=== PATIENT | male | born 1975 | race Caucasian/White ===

== ENCOUNTER 2018-10-30 17:41 | Inpatient (IN) ==
[2018-10-30] MEDS ORDERED: methylPREDNISolone SOD SUC 125 MG/2 ML VIAL IV STA (18:09)
[2018-10-30] MEDS ORDERED: ALBUTEROL/IPRATROPIUM 3 ML NEB RESP TX STA (18:13)
[2018-10-30 19:09] LABS: Albumin 3.4 G/DL (3.4-5.0); Bilirubin,Total 2.8 MG/DL (0.2-1.0); CKMB % 3.4 %; Calcium 8.7 MG/DL (8.5-10.1); Osmolality,Calculated 278.5 MOS/KG (273-304); Total Protein 6.4 G/DL (6.4-8.3); Troponin I 0.036 NG/ML (0.00-0.045)
[2018-10-30] MEDS ORDERED: DEXTROSE 50% 25 GM/50 ML VIAL IV STA (19:16)
[2018-10-30] MEDS ORDERED: INSULIN REGULAR 100 UNIT/ML IV STA (19:16)
[2018-10-30] MEDS ORDERED: ALBUTEROL NEB SOLN 5 MG/ML 20 ML/BOTTLE CONT NEB STA (19:16)
[2018-10-30] MEDS ORDERED: CALCIUM CHLORIDE 1,000 MG/10 ML SYRINGE IV STA (19:16)
[2018-10-30 19:54] LABS: Basophils % 0.3 % (0.0-0.8); Eosinophils % 0.5 % (0.00-10.9); Hematocrit 50.5 VOL% (42.0-52.0); Hemoglobin 16.3 GM/DL (14.0-18.0); Immature Granulocytes Absolute 0.07 #; Lymphocytes # 1.6 10*3/uL (1.4-4.0); Lymphocytes % 21.4 % (21.2-54.2); Mean Corpuscular HGB Conc 32.3 GM/DL (32-36); Mean Corpuscular Volume 102.2 FL (87-102); Mean Platelet Volume 11.8 FL (9.6-12.0); Monocytes % 8.8 % (1.7-12.7); NRBC # 0.22 10*3/uL; Red Blood Count 4.94 MC/CUMM (3.8-5.5); Red Cell Distribution Width 15.7 % (9.3-17.3); White Blood Count 7.3 T/CUMM (4-12)
[2018-10-30 20:01] LABS: Platelet Count 105 T/CUMM (130-400)
[2018-10-30 20:23] LABS: Anisocytosis 2+; Macrocytosis 2+; Platelet Estimate Adequate; Polychromasia 1+
[2018-10-30 20:24] LABS: Burr Cells Slight
[2018-10-30 21:57] LABS: Apearance,Urine CLEAR (Clear); Bacteria,Urine Occasional /HPF (Few); Bilirubin,Urine Negative (Negative); Blood, Urine Small mg/dL (Negative); Glucose,Urine (UA) Negative (Negative); Hyaline Casts,Urine 203 /LPF (0-3); Ketones,Urine Negative (Negative); Mucus,Urine Occasional /LPF (Occasional); Nitrite,Urine Negative (Negative); Protein,Urine 100 MG/DL; RBC,Urine 1 /HPF (0-4); Urine Color Yellow (Yellow); Urine Specific Gravity 1.011 (1.001-1.035); Urine Urobilinogen < 2.0 EU/DL (0.2-1.0); WBC,Urine <1 /HPF (0-6)
[2018-10-30] MEDS ORDERED: ACETAMINOPHEN 325 MG TABLET PO PRN (21:57)
[2018-10-30] MEDS ORDERED: ONDANSETRON 4 MG/2 ML VIAL IV PRN (21:57)
[2018-10-30] MEDS ORDERED: SODIUM CHLORIDE 0.9% 1,000 ML IV SCH (22:00)
[2018-10-30 22:06] LABS: Barbiturates Screen,Urine Negative (Negative); Benzodiazepines Screen,Urine Negative (Negative); Cannabinoid Screen,Urine Negative (Negative); Opiate Screen,Urine Negative (Negative); Phencyclidine Screen,Urine Negative (Negative)
[2018-10-30] MEDS: SODIUM BICARB INJ 50 MEQ in DEXTROSE 5% 1,000 ML IV SCH (22:14)
[2018-10-30] MEDS ORDERED: clonazePAM 0.5 MG TABLET PO PRN (22:37)
[2018-10-30] MEDS ORDERED: ALBUTEROL 2.5 MG/3 ML NEB RESP TX PRN (22:37)
[2018-10-30] MEDS ORDERED: SODIUM POLYSTYRENE SULFATE 15 GM/60 ML BOTTLE PO STA (22:39)
[2018-10-31 00:38] LABS: Basophils % 0.3 % (0.0-0.8); Hemoglobin 16.8 GM/DL (14.0-18.0); Immature Granulocytes % 1.3 %; Lymphocytes # 0.9 10*3/uL (1.4-4.0); Lymphocytes % 11.3 % (21.2-54.2); Mean Corpuscular HGB Conc 32.9 GM/DL (32-36); Mean Corpuscular Volume 100.4 FL (87-102); Mean Platelet Volume 11.3 FL (9.6-12.0); Monocytes % 7.7 % (1.7-12.7); NRBC # 0.16 10*3/uL; Neutrophils % 79.4 % (38.7-73.9); Platelet Count 172 T/CUMM (130-400); Red Blood Count 5.08 MC/CUMM (3.8-5.5); Red Cell Distribution Width 15.5 % (9.3-17.3); White Blood Count 7.8 T/CUMM (4-12)
[2018-10-31 00:51] LABS: INR 1.7; PT Patient Result 18.2 SECS; Partial Thromboplastin Time 30.8 SECS (0-40)
[2018-10-31 00:53] LABS: Albumin 3.3 G/DL (3.4-5.0); Bilirubin,Total 3.2 MG/DL (0.2-1.0); Calcium 9.3 MG/DL (8.5-10.1); Osmolality,Calculated 281.4 MOS/KG (273-304); Risk Ratio 4.71; Thyroid Stimulating Hormone 6.57 uIU/ml (0.358-3.74); Total Protein 6.2 G/DL (6.4-8.3)
[2018-10-31] MEDS: SODIUM BICARB INJ 50 MEQ in DEXTROSE 5% 1,000 ML IV SCH ×2 (06:41→08:58)
[2018-10-31] MEDS ORDERED: SILDENAFIL 25 MG PO PRN (08:25)
[2018-10-31] MEDS: PANTOPRAZOLE 40 MG TABLET PO SCH (08:54)
[2018-10-31] MEDS: CARVEDILOL 25 MG TABLET PO SCH ×2 (08:54→20:48)
[2018-10-31] MEDS: ESCITALOPRAM 10 MG TABLET PO SCH (08:56)
[2018-10-31] MEDS: DIGOXIN 0.125 MG TABLET PO SCH (08:56)
[2018-10-31] MEDS: ENOXAPARIN 30 MG/0.3 ML SYRINGE SUBCUT SCH (08:56)
[2018-10-31] MEDS ORDERED: CLORAZEPATE 3.75 MG TABLET PO ONE (14:08)
[2018-11-01 05:03] LABS: Calcium 8.8 MG/DL (8.5-10.1); Osmolality,Calculated 279.4 MOS/KG (273-304)
[2018-11-01] MEDS: ESCITALOPRAM 10 MG TABLET PO SCH (08:44)
[2018-11-01] MEDS: ENOXAPARIN 30 MG/0.3 ML SYRINGE SUBCUT SCH (08:44)
[2018-11-01] MEDS: DIGOXIN 0.125 MG TABLET PO SCH (08:44)
[2018-11-01] MEDS: PANTOPRAZOLE 40 MG TABLET PO SCH (08:45)
[2018-11-01] MEDS: CARVEDILOL 25 MG TABLET PO SCH ×2 (08:45→21:10)
[2018-11-01] MEDS ORDERED: CLORAZEPATE 3.75 MG TABLET PO PRN (15:07)
[2018-11-02 04:56] LABS: Calcium 8.6 MG/DL (8.5-10.1); Osmolality,Calculated 277.9 MOS/KG (273-304)
[2018-11-02] MEDS: ENOXAPARIN 30 MG/0.3 ML SYRINGE SUBCUT SCH (08:37)
[2018-11-02] MEDS: CARVEDILOL 25 MG TABLET PO SCH ×2 (08:37→22:18)
[2018-11-02] MEDS: PANTOPRAZOLE 40 MG TABLET PO SCH (08:37)
[2018-11-02] MEDS: DIGOXIN 0.125 MG TABLET PO SCH (08:37)
[2018-11-02] MEDS: ESCITALOPRAM 10 MG TABLET PO SCH (08:37)
[2018-11-02] MEDS: FUROSEMIDE 40 MG/4 ML VIAL IV SCH (15:22)
[2018-11-03 03:42] LABS: Basophils % 0.1 % (0.0-0.8); Eosinophils % 0.2 % (0.00-10.9); Hematocrit 44.7 VOL% (42.0-52.0); Immature Granulocytes % 0.5 %; Immature Granulocytes Absolute 0.04 #; Lymphocytes # 0.7 10*3/uL (1.4-4.0); Lymphocytes % 7.7 % (21.2-54.2); Mean Corpuscular HGB Conc 33.6 GM/DL (32-36); Mean Corpuscular Volume 98.9 FL (87-102); NRBC # 0.02 10*3/uL; Neutrophils % 80.5 % (38.7-73.9); Platelet Count 164 T/CUMM (130-400); Red Blood Count 4.52 MC/CUMM (3.8-5.5); Red Cell Distribution Width 15.6 % (9.3-17.3); White Blood Count 8.4 T/CUMM (4-12)
[2018-11-03 03:58] LABS: Calcium 8.3 MG/DL (8.5-10.1); Osmolality,Calculated 281.2 MOS/KG (273-304)
[2018-11-03] MEDS: FUROSEMIDE 40 MG/4 ML VIAL IV SCH ×2 (09:42→18:06)
[2018-11-03] MEDS: ENOXAPARIN 30 MG/0.3 ML SYRINGE SUBCUT SCH (09:49)
[2018-11-03] MEDS: CARVEDILOL 3.125 MG TABLET PO SCH ×2 (09:50→23:42)
[2018-11-03] MEDS: ESCITALOPRAM 10 MG TABLET PO SCH (09:50)
[2018-11-03] MEDS: SACUBITRIL/VALSARTAN 49-51 MG TABLET PO SCH ×2 (09:50→23:42)
[2018-11-03] MEDS: PANTOPRAZOLE 40 MG TABLET PO SCH (09:50)
[2018-11-03] MEDS: DIGOXIN 0.125 MG TABLET PO SCH (09:50)
[2018-11-04 04:49] LABS: Calcium 7.6 MG/DL (8.5-10.1); Osmolality,Calculated 280.8 MOS/KG (273-304)
[2018-11-04] MEDS: SACUBITRIL/VALSARTAN 49-51 MG TABLET PO SCH ×2 (08:47→20:45)
[2018-11-04] MEDS: POTASSIUM CHLORIDE 10 MEQ TABLET PO SCH ×3 (08:48→20:43)
[2018-11-04] MEDS: ENOXAPARIN 30 MG/0.3 ML SYRINGE SUBCUT SCH (08:49)
[2018-11-04] MEDS: FUROSEMIDE 40 MG TABLET PO SCH ×2 (08:49→15:16)
[2018-11-04] MEDS: PANTOPRAZOLE 40 MG TABLET PO SCH (08:49)
[2018-11-04] MEDS: DIGOXIN 0.125 MG TABLET PO SCH (08:49)
[2018-11-04] MEDS: CARVEDILOL 3.125 MG TABLET PO SCH ×2 (08:49→20:44)
[2018-11-04] MEDS: ESCITALOPRAM 10 MG TABLET PO SCH (08:49)
[2018-11-05 06:28] LABS: Basophils % 0.3 % (0.0-0.8); Eosinophils # 0.2 10*3/uL (0.0-0.87); Eosinophils % 2.1 % (0.00-10.9); Hematocrit 46.4 VOL% (42.0-52.0); Hemoglobin 15.1 GM/DL (14.0-18.0); Immature Granulocytes % 0.7 %; Immature Granulocytes Absolute 0.06 #; Lymphocytes # 0.8 10*3/uL (1.4-4.0); Lymphocytes % 8.7 % (21.2-54.2); Mean Corpuscular HGB Conc 32.5 GM/DL (32-36); Mean Corpuscular Volume 102.4 FL (87-102); Mean Platelet Volume 10.8 FL (9.6-12.0); Monocytes % 13.9 % (1.7-12.7); Neutrophils % 74.3 % (38.7-73.9); Platelet Count 181 T/CUMM (130-400); Red Blood Count 4.53 MC/CUMM (3.8-5.5); Red Cell Distribution Width 15.5 % (9.3-17.3); White Blood Count 8.9 T/CUMM (4-12)
[2018-11-05 06:38] LABS: Albumin 2.1 G/DL (3.4-5.0); Bilirubin,Direct 0.7 MG/DL (0.0-0.20); Bilirubin,Indirect 1.6 MG/DL (0.0-1.0); Bilirubin,Total 2.3 MG/DL (0.2-1.0); Total Protein 5.5 G/DL (6.4-8.3)
[2018-11-05 06:45] LABS: Calcium 7.5 MG/DL (8.5-10.1); Osmolality,Calculated 272.2 MOS/KG (273-304)
[2018-11-05 08:43] VITALS: BP 104/64
[2018-11-05] MEDS ORDERED: ENOXAPARIN 40 MG/0.4 ML SYRINGE SUBCUT SCH (09:00)
[2018-11-05] MEDS ORDERED: POTASSIUM CHLORIDE 20 MEQ TABLET PO SCH (09:00)
[2018-11-05] MEDS: DIGOXIN 0.125 MG TABLET PO SCH (09:14)
[2018-11-05] MEDS: SACUBITRIL/VALSARTAN 49-51 MG TABLET PO SCH (09:14)
[2018-11-05] MEDS: ESCITALOPRAM 10 MG TABLET PO SCH (09:15)
[2018-11-05] MEDS: CARVEDILOL 3.125 MG TABLET PO SCH (09:15)
[2018-11-05] MEDS: FUROSEMIDE 40 MG TABLET PO SCH (09:15)
[2018-11-05] MEDS: PANTOPRAZOLE 40 MG TABLET PO SCH (09:15)
== END 2018-11-05 12:30 | disposition home or self-care (01) | DRG 291 ==
LOC: EDUNIT# → EDBD → N.ED 17:41 → N.EDINP 21:51 → SUATTDRO 21:53 → N.TELES 22:19
PROVIDERS: ADMIT Family Medicine; ATTEND Internal Medicine